=== PATIENT | female | born 1960 | race Caucasian/White ===

== ENCOUNTER 2017-06-29 05:58 | Emergency (ER) | payer BC, OTHER ==
[2017-06-29 06:06] VITALS: PULSE 60; RESP 16
--- NOTE | 2017-06-29 06:33 | ED ---
Lower Extremity Injury HPI - General Chief Complaint: Extremity Injury, Lower Stated Complaint: Ankle Injury Time Seen by Provider: 06/29/17 06:31 Source: patient Mode of arrival: wheelchair Limitations: no limitations - History of Present Illness Initial Comments: Patient's 56-year-old woman who was stepping out of her truck yesterday and then had forced plantar flexion of the right ankle. She states that initially there was a little bit of pain but it has worsened since that time. She has noted swelling at the lateral and posterior aspect of the right ankle. She also has some pain at the dorsum of the foot and towards the toes. When things were worsening instead of proving she decided she should be seen here. MD Complaint: ankle injury, foot injury Onset/Timin -: days(s) Injury: Ankle: Left, Foot: Left Type of Injury: hyperextension Place: street/outdoors Severity: moderate Improves With: rest Worsens With: weight bearing Associated Symptoms: swelling - Related Data Home Medications Medication Instructions Recorded Confirmed Ibuprofen [Motrin Ib] 400 mg PO Q6H PRN 06/29/17 06/29/17 Previous Rx's Medication Instructions Recorded Hydrocodone/Acetaminophen [[place] 1 each PO Q6HR PRN #15 tab 06/29/17 5-325] Ibuprofen [Motrin] 600 mg PO Q8HR PRN #20 tab 06/29/17 Allergies Allergy/AdvReac Type Severity Reaction Status Date / Time No Known Allergies Allergy Verified 06/29/17 07:10 Review of Systems ROS Statement: Those systems with pertinent positive or pertinent negative responses have been documented in the HPI. ROS Other: All systems not noted in ROS Statement are negative. Constitutional: Denies: fever Musculoskeletal: Reports: joint swelling, arthralgia Skin: Denies: rash Neurological: Denies: weakness, numbness Past Medical History Past Medical History: No Reported History History of Any Multi-Drug Resistant Organisms: None Reported Past Surgical History: Tonsillectomy Additional Past Surgical History / Comment(s): bladder sling. Past Psychological History: No Psychological Hx Reported Smoking Status: Current every day smoker Past Alcohol Use History: Occasional Past Drug Use History: Marijuana General Exam Limitations: no limitations General appearance: alert, in no apparent distress Right Knee exam: Present: normal inspection, full ROM. Absent: tenderness, swelling Lower Leg exam: Present: normal inspection, full ROM. Absent: tenderness, swelling Ankle exam: Present: tenderness (Lateral malleolus), swelling (Lateral malleolus ), ecchymosis. Absent: full ROM, abrasion, laceration, deformity, dislocation, erythema Foot/Toe exam: Present: tenderness, ecchymosis Neurovascular tendon exam: Present: no vascular compromise. Absent: abnormal cap refill, motor deficit, sensory deficit Skin exam: Present: warm, dry, intact, normal color. Absent: rash Course Vital Signs 06/29/17 06:03 Temperature 98.6 F Pulse Rate 60 Respiratory 16 Rate Blood Pressure 113/57 O2 Sat by Pulse 100 Oximetry Procedures - Orthopedic Splinting/Casting Injury #1 Side: right Lower Extremity Injury Location: ankle Lower Extremity Immobilizer: posterior splint Other Orthopedic Equipment: crutches Disposition Clinical Impression: Ankle fracture Disposition: HOME SELF-CARE Condition: Good Instructions: Ankle Fracture (ED) Prescriptions: Hydrocodone/Acetaminophen [[place] 5-325] 1 each PO Q6HR PRN #15 tab PRN Reason: Pain Ibuprofen [Motrin] 600 mg PO Q8HR PRN #20 tab PRN Reason: Pain Is patient prescribed a controlled substance at d/c from ED?: Yes Referrals: Alexus Colbert MD [Primary Care Provider] - 1-2 days Rahul Hernandez MD [STAFF PHYSICIAN] - 1-2 days
--- NOTE | 2017-06-29 06:44 | XR ---
EXAMINATION TYPE: XR foot complete RT DATE OF EXAM: 06/29/2017 COMPARISON: NONE HISTORY: Pain and swelling TECHNIQUE: 3 views FINDINGS: Metatarsals appear intact. There is a plantar calcaneal spur. I see no fracture nor disloca tion. There are no erosions. IMPRESSION: Calcaneal spurring. No fracture seen.
--- NOTE | 2017-06-29 06:46 | XR ---
EXAMINATION TYPE: XR ankle complete RT DATE OF EXAM: 06/29/2017 COMPARISON: NONE HISTORY: Pain and injury TECHNIQUE: 3 views FINDINGS: There is nondisplaced transverse fracture of the distal fibula. There is mild lateral soft tissue swelling. There is no dislocation. There is a plantar calcaneal spur. IMPRESSION: Nondisplaced fracture of the lateral malleolus.
[2017-06-29 07:36] VITALS: BP 106/53; TEMP 99.3
== END 2017-06-29 07:36 | disposition home or self-care (01) ==
LOC: EC 05:58
DX: S82.891A Other fracture of right lower leg, initial encounter for closed fracture (principal); S90.31XA Contusion of right foot, initial encounter; F17.200 Nicotine dependence, unspecified, uncomplicated; X50.1XXA Overexertion from prolonged static or awkward postures, initial encounter; Y93.89 Activity, other specified; Y92.410 Unspecified street and highway as the place of occurrence of the external cause
CPT/HCPCS: 29515; 99283

== ENCOUNTER → 2018-02-26 | Outpatient (CLI) | payer BC ==
[2018-02-26 10:04] VITALS: BP 96/62; PULSE 72; BMI 32.1
[2018-02-26 10:15] VITALS: TEMP 98.6
--- NOTE | 2018-02-26 10:41 | P.HPOB ---
History of Present Illness H&P Date: 02/26/18 Chief Complaint: The patient is here for her routine gynecologic exam and mammogram. This is a 57-year-old with an LMP of 2005. The patient is status post vaginal hysterectomy for benign reasons. The patient is without gynecologic complaints. Review of Systems The patient has gained 5 pounds over the last year. She denies respiratory, cardiac, or G.I. problems. 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 No other history of STDs. Vaginal hysterectomy with A+P repairs done for prolapse. History of Any Multi-Drug Resistant Organisms: None Reported Past Surgical History: Hysterectomy (Vaginal hysterectomy with a+P repairs 2005) , Tonsillectomy Additional Past Surgical History / Comment(s): bladder sling. D&C. Colonoscopy 2018(2nd, next 3yrs) Past Psychological History: Anxiety Smoking Status: Current every day smoker (Half a pack of cigarettes per day) Past Alcohol Use History: Daily (2 per day) Past Drug Use History: Marijuana Additional History: since 2017, but has been with her since 1992. 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 - Past Family History Mother Family Medical History: Diabetes Mellitus Additional Family Medical History / Comment(s): And had breast cancer. Grandparents had heart disease and diabetes. Medications and Allergies Home Medications Medication Instructions Recorded Confirmed Type Pravastatin Sodium [Pravachol] 40 mg PO DAILY 02/26/18 02/26/18 History Sertraline [Zoloft] 25 mg PO DAILY 02/26/18 02/26/18 History Allergies Allergy/AdvReac Type Severity Reaction Status Date / Time No Known Allergies Allergy Verified 02/26/18 10:04 Exam Vital Signs Temp Pulse BP 02/26/18 09:58 98.6 F 72 96/62 Intake and Output 02/25/18 02/26/18 02/26/18 22:59 06:59 14:59 Other: Weight 77.111 kg Height 5'1", weight 170 pounds, BMI 32.1. This is a well-developed well-nourished female who is alert and oriented times 3 in no acute distress. HEENT: Within normal limits. NECK: Supple without mass or thyromegaly. CHEST AND LUNGS: Clear to auscultation. HEART: Regular rate and rhythm. BREASTS: Are without mass or discharge. AXILLARY EXAM: Negative for adenopathy. BACK: Negative for CVA tenderness. ABDOMEN: Soft, nontender, without palpable masses. PELVIC EXAM: Normal external genitalia with mild to moderate atrophy. Vagina appears normal with mild to moderate atrophy.. There is no unusual discharge. There is no evidence of prolapse. There are no palpable adnexal masses or tenderness. RECTAL EXAM: rectovaginal exam is negative for mass or tenderness and is negative for occult blood. EXTREMITIES: Nontender. IMPRESSION: 1. 57-year-old menopausal female status post vaginal hysterectomy for benign reasons, with normal gynecologic exam. PLAN: 1. Pap smears have been discontinued. 2. Self breast awareness was discussed with the patient. 3. Screening mammogram will be done today. 4. Osteoporosis prevention was discussed. I have stressed the importance of adequate calcium, vitamin D and regular exercise. Recommended amounts of calcium and vitamin D were also discussed. 5. She is planning and quitting smoking. We've discussed reasons why this is important. She and her plan on quitting using the nicotine patch. 5. She will return in one year.
--- NOTE | 2018-03-02 10:23 | MM ---
Reason for exam: screening (asymptomatic). Last mammogram was performed 2 years and 3 months ago. History: Patient is postmenopausal. Family history of breast cancer in aunt. MG Screening Mammo w CAD Bilateral CC and MLO view(s) were taken. XCCL view(s) were taken of the right breast. Prior study comparison: December 08, 2015, bilateral MG screening mammo w CAD. August 05, 2013, mammogram, performed at [facility]. The breast tissue is heterogeneously dense. This may lower the sensitivity of mammography. No discrete abnormality. ASSESSMENT: Negative, BI-RAD 1 RECOMMENDATION: Routine screening mammogram of both breasts in 1 year.
== END ==
LOC: WWCWWP 09:19
PROVIDERS: ATTEND Obstetrics & Gynecology
DX: Z12.31 Encounter for screening mammogram for malignant neoplasm of breast (principal)
CPT/HCPCS: 77067

== ENCOUNTER → 2019-08-26 | Outpatient (CLI) | payer BC ==
[2019-08-26 09:27] VITALS: BP 96/63; PULSE 61; RESP 18; TEMP 98.1
--- NOTE | 2019-08-26 10:07 | P.HPOB ---
History of Present Illness H&P Date: 08/26/19 Chief Complaint: The patient is here for her routine gynecologic exam. This is a 59-year-old with an LMP of 2006. The patient is status post vaginal hysterectomy for benign reasons. The patient is without gynecologic complaints. Review of Systems The patient has gained 8 pounds over the last year. She denies respiratory, cardiac, or G.I. problems. 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 No other history of STDs. History of Any Multi-Drug Resistant Organisms: None Reported Past Surgical History: Hysterectomy, Tonsillectomy Additional Past Surgical History / Comment(s): bladder sling. D&C. Vaginal hysterectomy with A+P repairs done for prolapse. Colonoscopy 2018(2nd, next 3yrs) Past Psychological History: Anxiety Smoking Status: Current every day smoker (5 cigarettes per day) Past Alcohol Use History: Daily (1-2 per day) Past Drug Use History: Marijuana Additional History: The patient has been since 2017 but has been with her since 1992. 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 - Past Family History Mother Family Medical History: Diabetes Mellitus Additional Family Medical History / Comment(s): And had breast cancer. Grandparents had heart disease and diabetes. Medications and Allergies Home Medications Medication Instructions Recorded Confirmed Type Pravastatin Sodium [Pravachol] 40 mg PO DAILY 02/26/18 08/26/19 History Sertraline [Zoloft] 25 mg PO DAILY 02/26/18 08/26/19 History Allergies Allergy/AdvReac Type Severity Reaction Status Date / Time No Known Allergies Allergy Verified 08/26/19 09:21 Exam Vital Signs Temp Pulse Resp BP Pulse Ox 08/26/19 09:24 98.1 F 61 18 96/63 99 Intake and Output 08/25/19 08/26/19 08/26/19 22:59 06:59 14:59 Other: Weight 80.739 kg Height 5 feet 1-1/2 inches, weight 178 pounds, BMI 30.1. This is a well-developed well-nourished female who is alert and oriented times 3 in no acute distress. HEENT: Within normal limits. NECK: Supple without mass or thyromegaly. CHEST AND LUNGS: Clear to auscultation. HEART: Regular rate and rhythm. BREASTS: Are without mass or discharge. AXILLARY EXAM: Negative for adenopathy. BACK: Negative for CVA tenderness. ABDOMEN: Soft, nontender, without palpable masses. PELVIC EXAM: External genitalia appears normal with mild atrophy. Vagina appears normal. There is no evidence of prolapse. Bimanual examination is negative for mass or tenderness. RECTAL EXAM: Rectovaginal exam is negative for mass or tenderness and is negative for occult blood. EXTREMITIES: Nontender. IMPRESSION: 1. 59-year-old menopausal female status post vaginal hysterectomy for benign reasons with normal gynecologic exam. PLAN: 1. Pap smears have been discontinued. 2. Self breast awareness was discussed with the patient. 3. Screening mammogram is scheduled next month and the order slip was given to the patient for this. 4. Osteoporosis prevention was discussed. I have stressed the importance of adequate calcium, vitamin D and regular exercise. Recommended amounts of calcium and vitamin D were also discussed. I have recommended that she do a baseline bone density test at her next annual examination appointment. 5. She is trying to cut back on smoking cigarettes. Stressed the importance of still working to cut back and possibly quit. We discussed many reasons why this is important. She states she will smoke no more than 5 cigarettes per day any day. She will try to decrease this number hopefully down to 0. 6. She was advised to return in one year for her annual well woman exam.
== END | disposition home or self-care (01) ==
LOC: WWCWWP 09:14
PROVIDERS: ATTEND Obstetrics & Gynecology
DX: Z53.9 Procedure and treatment not carried out, unspecified reason (principal)

== ENCOUNTER → 2019-08-29 | Outpatient (CLI) | payer BC ==
--- NOTE | 2019-08-29 08:32 | CT ---
EXAMINATION TYPE: CT chest wo con DATE OF EXAM: 08/29/2019 COMPARISON: None HISTORY: follow up abnormal chest xray CT DLP: 425.[address] of the chest was performed with lung and mediastinal window settings submitted. The la ck of contrast limits evaluation of the vascular, mediastinal and parenchymal structures including th e upper abdomen. LUNGS: Mild linear scarring left lower lobe. The lungs are clear and free of infiltrate. No atelectas is. No pulmonary nodule or mass is detected. No pleural effusion. No CT evidence of interstitial l devaughn disease. MEDIASTINUM/DIEUDONNE: Thoracic aorta is of normal caliber with limited evaluation given lack of contrast . The heart is not enlarged. No evidence for mediastinal mass. No lymph nodes greater than 1cm. UPPER ABDOMEN: No significant abnormality is seen. OTHER: No significant other abnormality. IMPRESSION: 1. No significant abnormality identified on this unenhanced study.
== END | disposition home or self-care (01) ==
LOC: RADCTMAIN 08:04
PROVIDERS: ATTEND Family Medicine
DX: R93.89 Abnormal findings on diagnostic imaging of other specified body structures (principal); Z72.0 Tobacco use
CPT/HCPCS: 71250

== ENCOUNTER → 2019-10-09 | Outpatient (CLI) | payer BC ==
--- NOTE | 2019-10-13 08:03 | MM ---
Reason for exam: screening (asymptomatic). Last mammogram was performed 1 year and 7 months ago. History: Patient is postmenopausal. Family history of breast cancer in aunt. Physical Findings: A clinical breast exam by your physician is recommended on an annual basis and results should be correlated with mammographic findings. MG Screening Mammo w CAD Bilateral CC and MLO view(s) were taken. Prior study comparison: February 26, 2018, bilateral MG screening mammo w CAD. December 08, 2015, bilateral MG screening mammo w CAD. There are scattered fibroglandular densities. No significant changes when compared with prior studies. ASSESSMENT: Negative, BI-RAD 1 RECOMMENDATION: Routine screening mammogram of both breasts in 1 year.
== END | disposition home or self-care (01) ==
LOC: RADMAMWWP 07:33
PROVIDERS: ATTEND Obstetrics & Gynecology
DX: Z12.31 Encounter for screening mammogram for malignant neoplasm of breast (principal)
CPT/HCPCS: 77067

== ENCOUNTER → 2020-10-20 | Outpatient (CLI) | payer BC ==
[2020-10-20 10:58] VITALS: BP 90/64; PULSE 62; RESP 18; TEMP 98.3
--- NOTE | 2020-10-20 11:44 | P.HPOB ---
History of Present Illness H&P Date: 10/20/20 Chief Complaint: The patient is here for her routine gynecologic exam and ma mmogram. This is a 60-year-old 012 with an LMP of 2006. The patient is status post vaginal hysterectomy for benign reasons. The patient still has occasional mild hot flashes which are not very bothersome. She is otherwise without gynecologic complaints. Review of Systems The patient has gained 6 pounds over the last year. She denies respiratory, cardiac, or G.I. problems. 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 No other history of STDs. History of Any Multi-Drug Resistant Organisms: None Reported Past Surgical History: Hysterectomy, Tonsillectomy Additional Past Surgical History / Comment(s): bladder sling. D&C. Vaginal hysterectomy with A+P repairs done for prolapse. Colonoscopy 2018(2nd, next 3yrs) Past Psychological History: Anxiety Smoking Status: Current every day smoker (4-10 cigarettes per day. She is trying to quit.) Past Alcohol Use History: Daily (3-4 drinks per day but she is trying to decrease her alcohol consumption.) Past Drug Use History: Marijuana (Small amount daily. She is trying to cut back.) Additional History: She is been since 2018, but they have been together since 1992. - Past Family History Mother Family Medical History: Diabetes Mellitus Additional Family Medical History / Comment(s): Maternal aunt had breast cancer. Grandparents had heart disease and diabetes. Medications and Allergies Home Medications Medication Instructions Recorded Confirmed Type Pravastatin Sodium [Pravachol] 40 mg PO DAILY 02/26/18 10/20/20 History Sertraline [Zoloft] 25 mg PO DAILY 02/26/18 10/20/20 History Allergies Allergy/AdvReac Type Severity Reaction Status Date / Time No Known Allergies Allergy Verified 10/20/20 10:50 Exam Vital Signs Temp Pulse Resp BP Pulse Ox 10/20/20 10:51 98.3 F 62 18 90/64 99 Intake and Output 10/19/20 10/20/20 10/20/20 22:59 06:59 14:59 Other: Weight 83.461 kg Height 5 feet 1-1/2 inches, weight 184 pounds, BMI 34.2. This is a well-developed well-nourished female who is alert and oriented times 3 in no acute distress. HEENT: Within normal limits. NECK: Supple without mass or thyromegaly. CHEST AND LUNGS: Clear to auscultation. HEART: Regular rate and rhythm. BREASTS: Are without mass or discharge. AXILLARY EXAM: Negative for adenopathy. BACK: Negative for CVA tenderness. ABDOMEN: Soft, nontender, without palpable masses. PELVIC EXAM: External genitalia appears normal with mild atrophy. Vagina appears normal with mild atrophy. There is no evidence of prolapse. Bimanual examination is negative for mass or tenderness. RECTAL EXAM: Rectovaginal exam is negative for mass or tenderness and is negative for occult blood. EXTREMITIES: Nontender. IMPRESSION: 1. 60-year-old menopausal female who is status post vaginal hysterectomy for benign reasons with normal gynecologic exam. PLAN: 1. Pap smears have been discontinued. 2. Self breast awareness was discussed with the patient. We have also discussed symptoms associated with inflammatory breast cancer. 3. Screening mammogram was done today. 4. Osteoporosis prevention was discussed. I have stressed the importance of adequate calcium, vitamin D and regular exercise. Recommended amounts of calcium and vitamin D were also discussed. We will plan on doing a bone density test next year at age 61. 5. She is trying to cut back on smoking cigarettes, drinking alcohol and marijuana use. We have discussed many reasons why each of these things is important to decrease. 6. She did receive her Stevie and Stevie Covid vaccination. 7. She believes she is due for colonoscopy and will arrange this through her PCP. 8. She was advised to return in one year for her annual well woman exam.
== END ==
LOC: WWCWWP 10:19
PROVIDERS: ATTEND Obstetrics & Gynecology
DX: Z12.31 Encounter for screening mammogram for malignant neoplasm of breast (principal); Z01.419 Encounter for gynecological examination (general) (routine) without abnormal findings; E78.5 Hyperlipidemia, unspecified; F17.210 Nicotine dependence, cigarettes, uncomplicated; F41.9 Anxiety disorder, unspecified; Z80.3 Family history of malignant neoplasm of breast; Z90.710 Acquired absence of both cervix and uterus

== ENCOUNTER → 2020-10-20 | Outpatient (CLI) | payer BC ==
--- NOTE | 2020-10-21 12:30 | MM ---
Reason for exam: screening (asymptomatic). Last mammogram was performed 1 year ago. History: Patient is postmenopausal. Family history of breast cancer in aunt. Physical Findings: A clinical breast exam by your physician is recommended on an annual basis and results should be correlated with mammographic findings. MG Screening Mammo w CAD Bilateral CC and MLO view(s) were taken. XCCL view(s) were taken of the right breast. Prior study comparison: October 09, 2019, bilateral MG screening mammo w CAD. February 26, 2018, bilateral MG screening mammo w CAD. There are scattered fibroglandular densities. There is no discrete abnormality. ASSESSMENT: Negative, BI-RAD 1 RECOMMENDATION: Routine screening mammogram of both breasts in 1 year.
== END | disposition home or self-care (01) ==
LOC: RADMAMWWP 10:14
PROVIDERS: ATTEND Family Medicine
DX: Z12.31 Encounter for screening mammogram for malignant neoplasm of breast (principal); Z78.0 Asymptomatic menopausal state; Z80.3 Family history of malignant neoplasm of breast
CPT/HCPCS: 77067

== ENCOUNTER → 2020-11-29 | Outpatient (CLI) | payer BC ==
--- NOTE | 2020-11-29 10:49 | XR ---
EXAMINATION TYPE: XR lumbosacral spine min 4V DATE OF EXAM: 11/29/2020 CLINICAL HISTORY: pain COMPARISON: NONE TECHNIQUE: Frontal, lateral, and oblique images of the lumbar spine are obtained. FINDINGS: There are 5 lumbar type vertebral bodies identified. The lumbar spine shows satisfactory alignment without evidence of acute fracture or dislocation. Severe degenerative change L4-5 and L5-S 1. Grade 1 L4 and L5 measuring 7.4 mm. The overlying soft tissue appears unremarkable. IMPRESSION: No acute fracture or dislocation is seen in the lumbar spine.ICD 10 NO FRACTURE, INITIAL EVALUATION
== END | disposition home or self-care (01) ==
LOC: RADXRMAIN 10:22
PROVIDERS: ATTEND Family Medicine
DX: M54.50 Low back pain, unspecified (principal)
CPT/HCPCS: 72110

== ENCOUNTER 2021-05-24 07:59 | Day surgery (SDC) | payer BC ==
[2021-05-19 11:26] VITALS: BMI 33.4
[~2021-05-24 07:59] MED LIST: LACTATED RINGERS 1,000 ML IV SCH
[2021-05-24 08:28] VITALS: TEMP 97.1
[2021-05-24] MEDS ORDERED: LIDOCAINE 1% INJ 10MG/ML (20 ML MDV) ONE (08:54)
[2021-05-24] MEDS ORDERED: PROPOFOL 10 MG/ML 20 ML VIAL IV ONE (08:54)
--- NOTE | 2021-05-24 09:02 | P.GSHP ---
History of Present Illness H&P Date: 05/24/21 Chief Complaint: History of colon polyps 60-year-old female here today for colonoscopy her last colonoscopy 2018. She had an ascending colon polyp that was removed in a piecemeal fashion. She has had occasional episodes of rectal bleeding. Otherwise doing well. 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 No other history of STDs. History of Any Multi-Drug Resistant Organisms: None Reported Past Surgical History: Hysterectomy, Tonsillectomy Additional Past Surgical History / Comment(s): D&C. Vaginal hysterectomy with A+P repairs done for prolapse. Colonoscopy 2018 Past Anesthesia/Blood Transfusion Reactions: No Reported Reaction Smoking Status: Current every day smoker - Past Family History Mother Family Medical History: Diabetes Mellitus Additional Family Medical History / Comment(s): Maternal aunt had breast cancer. Grandparents had heart disease and diabetes. Medications and Allergies Home Medications Medication Instructions Recorded Confirmed Type Pravastatin Sodium [Pravachol] 40 mg PO HS 02/26/18 05/24/21 History Sertraline [Zoloft] 12.5 mg PO DAILY 02/26/18 05/24/21 History Cyclobenzaprine HCl 10 mg PO HS PRN 05/24/21 05/24/21 History Allergies Allergy/AdvReac Type Severity Reaction Status Date / Time No Known Allergies Allergy Verified 05/24/21 08:23 Surgical - Exam Vital Signs Temp Pulse Resp BP Pulse Ox 97.1 F L 60 16 108/73 100 05/24/21 08:18 05/24/21 08:18 05/24/21 08:18 05/24/21 08:18 05/24/21 08:18 Physical exam: General: Well-developed, well-nourished HEENT: Normocephalic, sclerae nonicteric Abdomen: Nontender, nondistended Extremities: No edema Neuro: Alert and oriented Assessment and Plan (1) Colon polyps Narrative/Plan: Will proceed with colonoscopy at this time. Current Visit: Yes Status: Acute Code(s): K63.5 - POLYP OF COLON SNOMED Code(s): 28521636
--- NOTE | 2021-05-24 09:22 | P.PCN ---
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 SPECIMENS: Ileocecal valve, ascending colon polyp ENDOSCOPIC PROCEDURE: The patient was placed on the endoscopy table in the left decubitus position. The Olympus colonoscope was inserted into the anus and passed under direct visualization to the base of the cecum. The appendiceal orifice was visualized. From that point the scope was slowly withdrawn inspecting all surfaces carefully. At the valve itself there was a pedunculated portion of mucosa that was noted to intermittently carlos from the valve itself. A biopsy was taken to rule out adenomatous tissue however this was suspected represent a submucosal lipoma. And transverse colon. In the descending colon a small polyp was seen and removed using the snare polypectomy technique. The remainder of the descending sigmoid and rectum was free of any neoplastic or polypoid lesions. There was mild inflammation in the sigmoid colon associated with the patient's diverticulosis which appeared similar to previous endoscopies. The rectum appeared normal. Digital rectal examination was normal. The patient was taken to the recovery room in stable condition per anesthesia guidelines. RECOMMENDATIONS: Await biopsy results. Recommend repeat colonoscopy 5 years.
[2021-05-24 09:43] VITALS: BP 111/69; PULSE 55; RESP 20
== END 2021-05-24 10:10 ==
LOC: ORWHC2ENDO 07:59
PROVIDERS: ATTEND Surgery
DX: K57.30 Diverticulosis of large intestine without perforation or abscess without bleeding (principal); D12.4 Benign neoplasm of descending colon; E78.5 Hyperlipidemia, unspecified; F17.200 Nicotine dependence, unspecified, uncomplicated; F32.A Depression, unspecified; Z86.010 Personal history of colon polyps; Z79.899 Other long term (current) drug therapy; Z83.3 Family history of diabetes mellitus
CPT/HCPCS: 45380; 45385; 88305; J2001; J2704

== ENCOUNTER → 2021-10-21 | Outpatient (CLI) | payer BC ==
--- NOTE | 2021-10-28 17:57 | MM ---
Reason for Exam: Screening (asymptomatic). Last screening mammogram was performed 12 month(s) ago. Patient History: Menarche at age 11. First Full-Term at age 22. Hysterectomy at age 44. Postmenopausal. Maternal aunt had breast cancer, age 60. Risk Values: Anali 5 year model risk: 1.4%. NCI Lifetime model risk: 7.2%. Prior Study Comparison: 02/26/2018 Bilateral Screening Mammogram, [facility]. 10/09/2019 Bilateral Screening Mammogram, [facility]. 10/20/2020 Bilateral Screening Mammogram, [facility]. Tissue Density: The breast tissue is almost entirely fat. Findings: Analyzed By CAD. There is no suspicious group of microcalcifications or new suspicious mass in either breast. Overall Assessment: Negative, BI-RAD 1 Management: Screening Mammogram of both breasts in 1 year. A clinical breast exam by your physician is recommended on an annual basis and results should be correlated with mammographic findings. Electronically signed and approved by: Jarret Mg DO
== END | disposition home or self-care (01) ==
LOC: RADMAMWWP 10:19
PROVIDERS: ATTEND Family Medicine
DX: Z12.31 Encounter for screening mammogram for malignant neoplasm of breast (principal); Z78.0 Asymptomatic menopausal state; Z80.3 Family history of malignant neoplasm of breast
CPT/HCPCS: 77067

== ENCOUNTER → 2021-12-13 | Outpatient (CLI) | payer BC ==
[2021-12-13 10:07] VITALS: BP 102/70; PULSE 66; RESP 17; TEMP 98.1
--- NOTE | 2021-12-13 10:43 | P.HPOB ---
History of Present Illness H&P Date: 12/13/21 Chief Complaint: The patient is here for her routine gynecologic exam. This is a 69-year-old 012 with an LMP of 2005. She is status post vaginal hysterectomy for benign reasons. She is without gynecologic complaints. Review of Systems The patient's weight has been stable over the last year. She denies respiratory, cardiac, or G.I. problems. 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 No other history of STDs. History of Any Multi-Drug Resistant Organisms: None Reported Past Surgical History: Hysterectomy, Tonsillectomy Additional Past Surgical History / Comment(s): bladder sling. D&C. Vaginal hysterectomy with A+P repairs done for prolapse. Colonoscopy 2021(3rd, next 5yrs) Past Psychological History: Anxiety Smoking Status: Current every day smoker (Half pack per day) Past Alcohol Use History: Occasional (6 per week) Past Drug Use History: Marijuana (Small amount most days.) Additional History: She has been a since 2021. She now lives with one of her children and grandchildren. - Past Family History Mother Family Medical History: Diabetes Mellitus Additional Family Medical History / Comment(s): Maternal aunt had breast cancer. Grandparents had heart disease and diabetes. Medications and Allergies Home Medications Medication Instructions Recorded Confirmed Type Pravastatin Sodium [Pravachol] 40 mg PO HS 02/26/18 12/13/21 History Sertraline [Zoloft] 12.5 mg PO DAILY 02/26/18 12/13/21 History Cyclobenzaprine HCl 10 mg PO HS PRN 05/24/21 12/13/21 History Calcium Carbonate [Calcium] 600 mg PO DAILY 12/13/21 12/13/21 History Cholecalciferol [Vitamin D3 (10 10 mcg PO DAILY 12/13/21 12/13/21 History Mcg = 400 Iu)] Allergies Allergy/AdvReac Type Severity Reaction Status Date / Time No Known Allergies Allergy Verified 12/13/21 09:55 Exam Vital Signs Temp Pulse Resp BP Pulse Ox 12/13/21 10:05 98.1 F 66 17 102/70 97 Intake and Output 12/12/21 12/13/21 12/13/21 22:59 06:59 14:59 Other: Weight 83.915 kg Height 5 feet 2 inches, weight 185 pounds, BMI 33.8. This is a well-developed well-nourished female who is alert and oriented times 3 in no acute distress. HEENT: Within normal limits. NECK: Supple without mass or thyromegaly. CHEST AND LUNGS: Clear to auscultation. HEART: Regular rate and rhythm. BREASTS: Are without mass or discharge. AXILLARY EXAM: Negative for adenopathy. BACK: Negative for CVA tenderness. ABDOMEN: Soft, nontender, without palpable masses. PELVIC EXAM: External genitalia appears normal with mild atrophy. Vagina appears normal with mild atrophy. There is no evidence of prolapse. Bimanual examination is negative for mass or tenderness. RECTAL EXAM: Rectovaginal exam is negative for mass or tenderness and is negative for occult blood. EXTREMITIES: Nontender. IMPRESSION: 1. 61-year-old menopausal female status post vaginal hysterectomy for benign reasons, with normal gynecologic exam. PLAN: 1. Pap smears have been discontinued. 2. Self breast awareness was discussed with the patient. We have also discussed symptoms associated with inflammatory breast cancer. 3. Screening mammogram was done on 10/21/2021 and was benign. She will repeat this after 1 year. 4. Osteoporosis prevention was discussed. I have stressed the importance of adequate calcium, vitamin D and regular exercise. Recommended amounts of calcium and vitamin D were also discussed. Bone density testing is scheduled for 10/21/2021. 5. She was advised to return in one year for her annual well woman exam.
== END ==
LOC: WWCWWP 09:50
PROVIDERS: ATTEND Obstetrics & Gynecology
DX: Z01.419 Encounter for gynecological examination (general) (routine) without abnormal findings (principal); Z90.710 Acquired absence of both cervix and uterus; F17.200 Nicotine dependence, unspecified, uncomplicated

== ENCOUNTER → 2021-12-16 | Outpatient (CLI) | payer BC ==
--- NOTE | 2021-12-16 09:51 | BD ---
EXAMINATION TYPE: Axial Bone Density DATE OF EXAM: 12/16/2021 COMPARISON: FIRST DEXA AT [facility] CLINICAL HISTORY: 61 years year old Female. ICD-10 CODE: Z78.0 ASYMPTOMATIC MENOPAUSAL STATE Height: 61IN Weight: 184LB FRAX RISK QUESTIONS: Alcohol (3 or more units per day): YES History of Fracture in Adulthood: YES Secondary Osteoporosis: YES 3. Menopause before 45: YES Current Tobacco Use: YES RISK FACTORS HISTORY OF: Family History of Osteoporosis: YES Active: YES Postmenopausal woman: YES MEDICATIONS: Additional Medications: CALCIUM WITH VITAMIN D, CHOLESTEROL MED Additional History: ANKLE FX EXAM MEASUREMENTS: Bone mineral densitometry was performed using the [employer] System. Bone mineral density as measured about the Lumbar spine is: ----- L1-L4(G/cm2): 1.107 T Score Values are as follows: ----- L1: -1.1 ----- L2: -1.2 ----- L3: -0.1 ----- L4: -0.4 ----- L1-L4: -0.6 FIRST DEXA AT [facility] Bone mineral density about the R hip (g/cm2): 0.797 Bone mineral density about the L hip (g/cm2): 0.881 T Score values are as follows: -----R Neck: -2.2 -----L Neck: -2.2 -----R Total: -1.7 -----L Total: -1.0 FRAX%s: The graph provided illustrates a 12.4% chance for a major osteoporotic fx and a 3.8% chance f or the hips probability for fx in 10 years time. IMPRESSION: Osteopenia (T Score between -2.5 and -1). There is slightly increased risk of fracture and the patient may be considered for treatment. Re-Screen 2-5 years. NOTE: T-SCORE=SD OF THE YOUNG ADULT MEAN.
== END | disposition home or self-care (01) ==
LOC: RADBDWWP 08:34
PROVIDERS: ATTEND Family Medicine
DX: M85.89 Other specified disorders of bone density and structure, multiple sites (principal); Z78.0 Asymptomatic menopausal state
CPT/HCPCS: 77080

== ENCOUNTER → 2022-11-22 | Outpatient (CLI) | payer BC ==
--- NOTE | 2022-11-23 10:55 | MM ---
Reason for Exam: Screening (asymptomatic). Last mammogram was performed 1 year(s) and 1 month(s) ago. Patient History: Menarche at age 11. First Full-Term at age 22. Hysterectomy at age 44. Postmenopausal. Maternal aunt had breast cancer, age 60. Risk Values: Anali 5 year model risk: 1.5%. NCI Lifetime model risk: 7.0%. Prior Study Comparison: 10/09/2019 Bilateral Screening Mammogram, [facility]. 10/20/2020 Bilateral Screening Mammogram, [facility]. 10/21/2021 Bilateral MG screening mammo w CAD, [facility]. Tissue Density: There are scattered fibroglandular densities. Findings: Analyzed By CAD. There is no suspicious group of microcalcifications or new suspicious mass in either breast. Overall Assessment: Negative, BI-RAD 1 Management: Screening Mammogram of both breasts in 1 year. . Patient should continue monthly self-breast exams. A clinical breast exam by your physician is recommended on an annual basis. This exam should not preclude additional follow-up of suspicious palpable abnormalities. Note on Anali scores and lifetime risk: 1. A Anali score greater than 3% is considered moderate risk. If this is the case, consider specialist referral to assess eligibility for a risk reducing agent. 2. If overall lifetime risk for the development of breast cancer is 20% or higher, the patient may qualify for future screening with alternating mammogram and breast MRI. Electronically signed and approved by: Zeeshan Haji M.D. Radiologis
== END | disposition home or self-care (01) ==
LOC: RADMAMWWP 07:44
PROVIDERS: ATTEND Family Medicine
DX: Z12.31 Encounter for screening mammogram for malignant neoplasm of breast (principal); Z78.0 Asymptomatic menopausal state; Z80.3 Family history of malignant neoplasm of breast
CPT/HCPCS: 77063; 77067

== ENCOUNTER → 2023-12-25 | Outpatient (CLI) | payer BC ==
[2023-12-25 10:04] VITALS: BP 101/67; PULSE 58; RESP 17; TEMP 97.7
--- NOTE | 2023-12-25 10:35 | P.HPOB ---
History of Present Illness H&P Date: 12/25/23 Chief Complaint: The patient is here for her routine gynecologic exam and ma mmogram. This is a 63-year-old -0-1-2 with an LMP of 2005. The patient is status post vaginal hysterectomy for benign reasons. She is without gynecologic complaints. Review of Systems The patient has lost 6 pounds over the last year. She denies respiratory, cardiac, or G.I. problems. Past Medical History Past Medical History: Hyperlipidemia Additional Past Medical History / Comment(s): Osteopenia. 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 No other history of STDs. History of Any Multi-Drug Resistant Organisms: None Reported Past Surgical History: Hysterectomy, Tonsillectomy Additional Past Surgical History / Comment(s): bladder sling. D&C. Vaginal hysterectomy with A+P repairs done for prolapse. Colonoscopy 2021(3rd, next 5yrs) Past Psychological History: Anxiety Smoking Status: Current every day smoker (1/2 to 1 pack of cigarettes per day.) Past Alcohol Use History: Occasional Past Drug Use History: Marijuana Additional History: She has been a since 2021. She lives with one of her children and grandchildren. She also is caring for an aunt. - Past Family History Mother Family Medical History: Diabetes Mellitus Additional Family Medical History / Comment(s): Maternal aunt had breast cancer. Grandparents had heart disease and diabetes. Medications and Allergies Home Medications Medication Instructions Recorded Confirmed Type No Known Home Medications 12/25/23 12/25/23 History Allergies Allergy/AdvReac Type Severity Reaction Status Date / Time No Known Allergies Allergy Verified 12/25/23 09:52 Exam Vital Signs Temp Pulse Resp BP Pulse Ox 12/25/23 09:53 97.7 F 58 L 17 101/67 100 Intake and Output 12/24/23 12/25/23 12/25/23 22:59 06:59 14:59 Other: Weight 81.193 kg Height 5 feet 2 inches, weight 179 pounds, BMI 32.7. This is a well-developed well-nourished female who is alert and oriented times 3 in no acute distress. HEENT: Within normal limits. NECK: Supple without mass or thyromegaly. CHEST AND LUNGS: Clear to auscultation. HEART: Regular rate and rhythm. BREASTS: Are without mass or discharge. AXILLARY EXAM: Negative for adenopathy. BACK: Negative for CVA tenderness. ABDOMEN: Soft, nontender, without palpable masses. PELVIC EXAM: External genitalia appears normal with mild atrophy. Vagina appears normal with mild atrophy. There is no evidence of prolapse. Bimanual examination is negative for mass or tenderness. RECTAL EXAM: Rectovaginal exam is negative for mass or tenderness and is negative for occult blood. EXTREMITIES: Nontender. IMPRESSION: 1. 63-year-old menopausal female status post vaginal hysterectomy for benign reasons, with normal gynecologic exam. 2. History of osteopenia. PLAN: 1. Pap smears have been discontinued. 2. Self breast awareness was discussed with the patient. We have also discussed symptoms associated with inflammatory breast cancer. 3. Screening mammogram was done today. 4. Osteoporosis prevention was discussed. I have stressed the importance of adequate calcium, vitamin D and regular exercise. Recommended amounts of calcium and vitamin D were also discussed. I recommended that she repeat her bone density test since it has been more than 2 years. The order slip was given to the patient for this. 5. I have recommended trying to quit smoking. We have discussed ways of doing this. We have also discussed many reasons why this is important. 6. She was advised to return in one year for her annual well woman exam.
--- NOTE | 2023-12-29 17:18 | MM ---
Reason for Exam: Screening (asymptomatic). Last mammogram was performed 1 year(s) and 1 month(s) ago. Patient History: Menarche at age 11. First Full-Term at age 22. Hysterectomy at age 44. Postmenopausal. Maternal aunt had breast cancer, age 60. Risk Values: Anali 5 year model risk: 1.5%. NCI Lifetime model risk: 6.8%. Prior Study Comparison: 10/20/2020 Bilateral Screening Mammogram, [facility]. 10/21/2021 Bilateral MG screening mammo w CAD, [facility]. 11/22/2022 Bilateral MG 3D screening mammo w/cad, [facility]. Tissue Density: There are scattered areas of fibroglandular density. Findings: Analyzed By CAD. The pattern is symmetrical. No significant interval change No suspicious groups of microcalcifications, spiculated or lobular masses, architectural distortion or other secondary signs of malignancy are mammographically apparent. Overall Assessment: Benign, BI-RAD 2 Management: Screening Mammogram of both breasts in 1 year. A negative mammogram report should not preclude additional follow up of suspicious palpable abnormalities. Patient should continue monthly self breast exam. A clinical breast exam by your physician is recommended on an annual basis and results should be correlated with mammographic findings. Note on Anali scores and lifetime risk: 1. A Anali score greater than 3% is considered moderate risk. If this is the case, consider specialist referral to assess eligibility for a risk reducing agent. 2. If overall lifetime risk for the development of breast cancer is 20% or higher, the patient may qualify for future screening with alternating mammogram and breast MRI. [facility], , 12/29/2023 5:15 PM. Electronically signed and approved by: Michael Lane D.O. Radiologis
== END | disposition home or self-care (01) ==
LOC: RADMAMWWP 09:06
PROVIDERS: ATTEND Obstetrics & Gynecology
DX: Z12.31 Encounter for screening mammogram for malignant neoplasm of breast (principal); Z01.419 Encounter for gynecological examination (general) (routine) without abnormal findings; R92.323 Mammographic fibroglandular density, bilateral breasts; Z78.0 Asymptomatic menopausal state; Z80.3 Family history of malignant neoplasm of breast
CPT/HCPCS: 77063; 77067

== ENCOUNTER 2024-06-25 16:37 | Emergency (ER) | payer BC ==
--- NOTE | 2024-06-25 17:50 | ED ---
General Adult HPI - General Source: patient, RN notes reviewed Mode of arrival: ambulatory Limitations: no limitations <Dorothy Narvaez - Last Filed: 06/25/24 19:47> <Nichole Davis - Last Filed: 06/26/24 00:06> - General Chief complaint: Abdominal Pain Stated complaint: abd pain Time Seen by Provider: 06/25/24 17:31 - History of Present Illness Initial comments: 63-year-old female presents to the emergency department for evaluation of lower abdominal pain. Patient states that this has been going on for around 3 days. She notes that it was initially coming and going but has become more consistent. She notes it is in her lower abdomen and describes it as an aching pain. She does report a history of diverticulosis with a prior hospitalization for diverticulitis. Denies fever, chills, nausea, vomiting. She reports constipation and small bowel movements recently. She has been passing flatulence. She reports a prior hysterectomy, bladder sling surgery. (Dorothy Narvaez) - Related Data Home Medications Medication Instructions Recorded Confirmed No Known Home Medications 12/25/23 12/25/23 Allergies Allergy/AdvReac Type Severity Reaction Status Date / Time No Known Allergies Allergy Verified 06/25/24 16:45 Review of Systems ROS Other: All systems not noted in ROS Statement are negative. <Dorothy Narvaez - Last Filed: 06/25/24 19:47> ROS Other: All systems not noted in ROS Statement are negative. <Nichole Davis - Last Filed: 06/26/24 00:06> ROS Statement: Those systems with pertinent positive or pertinent negative responses have been documented in the HPI. Past Medical History Past Medical History: Hyperlipidemia Additional Past Medical History / Comment(s): Osteopenia. 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 No other history of STDs. Diverticulitis History of Any Multi-Drug Resistant Organisms: None Reported Past Surgical History: Hysterectomy, Tonsillectomy Additional Past Surgical History / Comment(s): bladder sling. D&C. Vaginal hysterectomy with A+P repairs done for prolapse. Colonoscopy 2021(3rd, next 5yrs) Past Psychological History: Anxiety Smoking Status: Current every day smoker Past Alcohol Use History: Occasional Past Drug Use History: Marijuana - Past Family History Mother Family Medical History: Diabetes Mellitus Additional Family Medical History / Comment(s): Maternal aunt had breast cancer. Grandparents had heart disease and diabetes. <Dorothy Narvaez - Last Filed: 06/25/24 19:47> General Exam Limitations: no limitations General appearance: alert, in no apparent distress Head exam: Present: atraumatic, normocephalic, normal inspection Eye exam: Present: normal appearance, PERRL, EOMI. Absent: scleral icterus, conjunctival injection, periorbital swelling ENT exam: Present: normal exam, mucous membranes moist Respiratory exam: Present: normal lung sounds bilaterally. Absent: respiratory distress, wheezes, rales, rhonchi, stridor Cardiovascular Exam: Present: regular rate, normal rhythm, normal heart sounds. Absent: systolic murmur, diastolic murmur, rubs, gallop, clicks GI/Abdominal exam: Present: soft, tenderness, normal bowel sounds. Absent: distended, guarding, rebound, rigid Extremities exam: Present: normal inspection, full ROM, normal capillary refill. Absent: tenderness, pedal edema, joint swelling, calf tenderness Back exam: Present: normal inspection Neurological exam: Present: alert, oriented X3 Psychiatric exam: Present: normal affect, normal mood Skin exam: Present: warm, dry, intact, normal color. Absent: rash <Dorothy Narvaez - Last Filed: 06/25/24 19:47> Course <Nichole Davis - Last Filed: 06/26/24 00:06> Vital Signs 06/25/24 06/25/24 16:41 20:52 Temperature 98.7 F 98.4 F Pulse Rate 75 62 Respiratory 22 18 Rate Blood Pressure 119/75 116/73 O2 Sat by Pulse 97 99 Oximetry - Reevaluation(s) Reevaluation #1: 06/25/24 19:48 Patient signed out to me by previous shift Dorothy Narvaez PA-C pending CT results and disposition. (Nichole Davis) Medical Decision Making - Lab Data Result diagrams: 06/25/24 18:05 06/25/24 18:05 <Dorothy Narvaez - Last Filed: 06/25/24 19:47> - Lab Data Result diagrams: 06/25/24 18:05 06/25/24 18:05 - Radiology Data Radiology results: report reviewed, image reviewed <Nichole Davis - Last Filed: 06/26/24 00:06> - Medical Decision Making Was pt. sent in by a medical professional or institution (ROMELIA Duron, STREET SUPERVISOR, urgent care, hospital, or chcf...) When possible be specific @ -[No] Did you speak to anyone other than the patient for history (EMS, parent, family, police, friend...)? What history was obtained from this source @ -[No] Did you review nursing and triage notes (agree or disagree)? Why? @ -[I reviewed and agree with nursing and triage notes] Were old charts reviewed (outside hosp., previous admission, EMS record, old EKG, old radiological studies, urgent care reports/EKG's, chcf records)? Report findings @ -[No old charts were reviewed] Differential Diagnosis (chest pain, altered mental status, abdominal pain women, abdominal pain men, vaginal bleeding, weakness, fever, dyspnea, syncope, headache, dizziness, GI bleed, back pain, seizure, CVA, palpatations, mental health, musculoskeletal)? @ -[Differential Abdominal Pain Women: Appendicitis, Cholecystitis, diverticulosis, ischemic bowel, pancreatitis, hepatitis, UTI, gastroenteritis, AAA, incarcerated hernia, bowel obstruction, constipation, inflammatory bowel, hepatitis, peptic ulcer disease, splenic infarction, perforated viscus, vulvitis, ovarian torsion, PID, kidney stone, placenta abruption, this is not meant to be an all-inclusive list ] EKG interpreted by me (3pts min.). @ -None X-rays interpreted by me (1pt min.). @ -[None done] CT interpreted by me (1pt min.). @ -CT U/S interpreted by me (1pt. min.). @ -[None done] What testing was considered but not performed or refused? (CT, X-rays, U/S, labs)? Why? @ -[None] What meds were considered but not given or refused? Why? @ -[None] Did you discuss the management of the patient with other professionals (professionals i.e. ROMELIA Duron, STREET SUPERVISOR, lab, RT, psych nurse, director social welfare, coin wrapping machine operator, teacher, flight deck officer, caseworker intake)? Give summary @ -[No] Was smoking cessation discussed for >3mins.? @ -[No] Was critical care preformed (if so, how long)? @ -[No] Were there social determinants of health that impacted care today? How? (Homelessness, low income, unemployed, alcoholism, drug addiction, transportation, low edu. Level, literacy, decrease access to med. care, custodial, rehab)? @ -[No] Was there de-escalation of care discussed even if they declined (Discuss DNR or withdrawal of care, Hospice)? DNR status @ -[No] What co-morbidities impacted this encounter? (DM, HTN, Smoking, COPD, CAD, Cancer, CVA, ARF, Chemo, Hep., AIDS, mental health diagnosis, sleep apnea, morbid obesity)? @ -[None] Was patient admitted / discharged? Hospital course, mention meds given and route, prescriptions, significant lab abnormalities, going to OR and other pertinent info. @ -Patient presented the emergency department for evaluation of abdominal pain. Laboratory studies performed revealing no significant leukocytosis, hemoglobin stable. CMP is nonactionable. UA shows no evidence of infectious process. CT of the abdomen pelvis is pending at time of signout to Nichole Davis PA-C Undiagnosed new problem with uncertain prognosis? @ -[No] Drug Therapy requiring intensive monitoring for toxicity (Heparin, Nitro, Insulin, Cardizem)? @ -[No] Were any procedures done? @ -[No] Diagnosis/symptom? @ -[default] Acute, or Chronic, or Acute on Chronic? @ -[default] Uncomplicated (without systemic symptoms) or Complicated (systemic symptoms)? @ -[default] Side effects of treatment? @ -[No] Exacerbation, Progression, or Severe Exacerbation? @ -[No] Poses a threat to life or bodily function? How? (Chest pain, USA, MA, pneumonia, PE, COPD, DKA, ARF, appy, cholecystitis, CVA, Diverticulitis, Homicidal, Suicidal, threat to staff... and all critical care pts) @ -[No] (Dorothy Narvaez) Was pt. sent in by a medical professional or institution (ROMELIA Duron, STREET SUPERVISOR, urgent care, hospital, or chcf...) When possible be specific @ -No Did you speak to anyone other than the patient for history (EMS, parent, family, police, friend...)? What history was obtained from this source @ -No Did you review nursing and triage notes (agree or disagree)? Why? @ -I reviewed and agree with nursing and triage notes Were old charts reviewed (outside hosp., previous admission, EMS record, old EKG, old radiological studies, urgent care reports/EKG's, chcf records)? Report findings @ -No old charts were reviewed Differential Diagnosis (chest pain, altered mental status, abdominal pain women, abdominal pain men, vaginal bleeding, weakness, fever, dyspnea, syncope, headache, dizziness, GI bleed, back pain, seizure, CVA, palpatations, mental health, musculoskeletal)? @ -[Differential Abdominal Pain Women: Appendicitis, Cholecystitis, diverticulosis, ischemic bowel, pancreatitis, hepatitis, UTI, gastroenteritis, AAA, incarcerated hernia, bowel obstruction, constipation, inflammatory bowel, hepatitis, peptic ulcer disease, splenic infarction, perforated viscus, vulvitis, ovarian torsion, PID, kidney stone, placenta abruption, this is not meant to be an all-inclusive list EKG interpreted by me (3pts min.). @ -None done X-rays interpreted by me (1pt min.). @ -[None done CT interpreted by me (1pt min.). @-CTA abdomen pelvis showing no evidence of gastrointestinal hemorrhage. There is dilation of CBD measuring 11 mm. Colonic diverticulosis. 2 gastric diverticula. 7 mm focus of arterial and venous phase liver enhancement. U/S interpreted by me (1pt. min.). @ -None done What testing was considered but not performed or refused? (CT, X-rays, U/S, labs)? Why? @ -None What meds were considered but not given or refused? Why? @ -None Did you discuss the management of the patient with other professionals (professionals i.e. , PA, STREET SUPERVISOR, lab, RT, psych nurse, director social welfare, coin wrapping machine operator, teacher, flight deck officer, caseworker intake)? Give summary @ -No Was smoking cessation discussed for >3mins.? @ -No Was critical care preformed (if so, how long)? @ -No Were there social determinants of health that impacted care today? How? (Homelessness, low income, unemployed, alcoholism, drug addiction, transportation, low edu. Level, literacy, decrease access to med. care, custodial, rehab)? @ -No Was there de-escalation of care discussed even if they declined (Discuss DNR or withdrawal of care, Hospice)? DNR status @ -No What co-morbidities impacted this encounter? (DM, HTN, Smoking, COPD, CAD, Cancer, CVA, ARF, Chemo, Hep., AIDS, mental health diagnosis, sleep apnea, morbid obesity)? @ -None Was patient admitted / discharged? Hospital course, mention meds given and route, prescriptions, significant lab abnormalities, going to OR and other pertinent info. @ -[Discharge. 63-year-old female presenting the ER for evaluation abdominal pain. Patient signed out to me by previous shift, Dorothy Narvaez PA-C pending CT results and disposition. CTA showing no acute evidence of gastrointestinal hemorrhage. Colonic diverticulosis without evidence of acute diverticulitis. Upon reevaluation, patient resting comfortably on stretcher no signs of acute distress. Patient reporting improvement of pain after analgesic medications. Patient did report bright red blood on toilet paper when wiping rectal exam performed by Brice reported to be significant for hemorrhoids which are likely source of blood. CT results including dilation of common bile duct and liver abnormality discussed with patient and advised close follow-up with PCP and GI for further evaluation. Patient is agreeable for discharge and will be discharged stable condition. Return parameters discussed. Patient verbally expressed understand agree with care plan. Case discussed with ED attending, Dr. Price. Undiagnosed new problem with uncertain prognosis? @ -No Drug Therapy requiring intensive monitoring for toxicity (Heparin, Nitro, Insulin, Cardizem)? @ -No Were any procedures done? @ -No Diagnosis/symptom? @ -Abdominal pain Acute, or Chronic, or Acute on Chronic? @ -Acute Uncomplicated (without systemic symptoms) or Complicated (systemic symptoms)? @ -Uncomplicated Side effects of treatment? @ -No Exacerbation, Progression, or Severe Exacerbation? @ -No Poses a threat to life or bodily function? How? (Chest pain, USA, MA, pneumonia, PE, COPD, DKA, ARF, appy, cholecystitis, CVA, Diverticulitis, Homicidal, Suicidal, threat to staff... and all critical care pts) @ -Unlikely (Nichole Davis) - Lab Data Lab Results 06/25/24 06/25/24 06/25/24 Range/Units 18:05 18:05 18:05 WBC 7.26 (4.50-10.00) 10*3/uL RBC 4.06 L (4.10-5.20) 10*6/uL Hgb 13.4 (12.0-15.0) g/dL Hct 39.0 (37.2-46.3) % MCV 96.1 (80.0-97.0) fL MCH 33.0 H (27.0-32.0) pg MCHC 34.4 (32.0-37.0) g/dL Plt Count 285 (140-440) 10*3/uL MPV 10.2 (9.5-12.2) fL Immature Gran % (Auto) 0.3 % Neutrophils % 52.9 % Lymphocytes % 39.7 % Monocytes % 6.2 % Eosinophils % 0.6 % Basophils % 0.3 % Immature Gran # 0.02 (0.00-0.04) 10*3/uL Neutrophils # 3.85 (1.80-7.70) 10*3/uL Lymphocytes # 2.88 (0.90-5.00) 10*3/uL Monocytes # 0.45 (0.20-1.00) 10*3/uL Eosinophils # 0.04 (0.04-0.35) 10*3/uL Basophils # 0.02 (0.00-0.10) 10*3/uL Sodium 140 (137-145) mmol/L Potassium 4.0 (3.5-5.1) mmol/L Chloride 110 H (98-107) mmol/L Carbon Dioxide 21 L (22-30) mmol/L Anion Gap 9 mmol/L BUN 12 (7-17) mg/dL Creatinine 0.63 (0.52-1.04) mg/dL Est GFR (CKD-EPI)AfAm >90 (>60 ml/min/1.73 sqM) Est GFR (CKD-EPI)NonAf >90 (>60 ml/min/1.73 sqM) Glucose 91 (74-99) mg/dL Calcium 9.9 (8.4-10.2) mg/dL Total Bilirubin 0.5 (0.2-1.3) mg/dL AST 25 (14-36) U/L ALT 24 (4-34) U/L Alkaline Phosphatase 92 (38-126) U/L Total Protein 6.9 (6.3-8.2) g/dL Albumin 4.4 (3.5-5.0) g/dL Amylase 62 (30-110) U/L Lipase 178 (23-300) U/L Urine Color Colorless Urine Appearance Cloudy H (Clear) Urine pH 6.5 (5.0-8.0) Ur Specific [place] 1.014 (1.001-1.035) Urine Protein Negative (Negative) Urine Glucose (UA) Negative (Negative) Urine Ketones Negative (Negative) Urine Blood Negative (Negative) Urine Nitrite Negative (Negative) Urine Bilirubin Negative (Negative) Urine Urobilinogen <2.0 (<2.0) mg/dL Ur Leukocyte Esterase Negative (Negative) Urine RBC <1 (0-5) /hpf Urine WBC 2 (0-5) /hpf Ur Squamous Epith Cells 2 (0-4) /hpf Urine Mucus Rare H (None) /hpf Disposition <Dorothy Narvaez - Last Filed: 06/25/24 19:47> Is patient prescribed a controlled substance at d/c from ED?: No Time of Disposition: 20:40 <Nichole Davis - Last Filed: 06/26/24 00:06> Clinical Impression: Abdominal pain Disposition: HOME SELF-CARE Condition: Stable Instructions (If sedation given, give patient instructions): Abdominal Pain (ED) Additional Instructions: Follow-up with PCP and GI. Follow-up closely for further evaluation of dilated common bile duct and liver lesion found on CT. Return to the ER for any new or worsening concerns. Referrals: Alexus Colbert MD [Primary Care Provider] - 1-2 days Bernice Wseley MD [STAFF PHYSICIAN] - 1-2 days
[2024-06-25] MEDS: KETOROLAC 15 MG/ML 1 ML VIAL IVP STA (18:13)
[2024-06-25] MEDS: LACTATED RINGERS 1,000 ML IV ONE (18:13)
[2024-06-25 18:14] LABS: Basophils # (A) 0.02 10*3/uL (0.00-0.10); Basophils % (A) 0.3 %; Eosinophils # (A) 0.04 10*3/uL (0.04-0.35); Eosinophils % (A) 0.6 %; HGB 13.4 g/dL (12.0-15.0); Lymphocytes # (A) 2.88 10*3/uL (0.90-5.00); Lymphocytes % (A) 39.7 %; MCHC 34.4 g/dL (32.0-37.0); MCV 96.1 fL (80.0-97.0); Mean Platelet Volume 10.2 fL (9.5-12.2); Monocytes # (A) 0.45 10*3/uL (0.20-1.00); Monocytes % (A) 6.2 %; Neutrophils # (A) 3.85 10*3/uL (1.80-7.70); Neutrophils % (A) 52.9 %; Platelet Count 285 10*3/uL (140-440); RBC 4.06 10*6/uL (4.10-5.20); RDW 13.2 % (11.5-14.5); WBC 7.26 10*3/uL (4.50-10.00)
[2024-06-25 18:18] LABS: Appearance,Urine Cloudy (Clear); Bilirubin,Urine Negative (Negative); Blood,Urine Negative (Negative); Color,Urine Colorless; Glucose,Urine (UA) Negative (Negative); Ketones,Urine Negative (Negative); Leukocyte Esterase,Urine Negative (Negative); Mucus,Urine Rare /hpf; Nitrite,Urine Negative (Negative); PH, Urine 6.5 (5.0-8.0); Protein,Urine Negative (Negative); RBC,Urine <1 /hpf (0-5); Specific Gravity,Urine 1.014 (1.001-1.035); Squamous Epithelial Cell,Urine 2 /hpf (0-4); Urobilinogen,Urine <2.0 mg/dL (<2.0); WBC,Urine 2 /hpf (0-5)
[2024-06-25 18:27] LABS: ALT 24 U/L (4-34); AST 25 U/L (14-36); African American GFR (CKD) >90 (>60 ml/min/1.73 sqM); Albumin 4.4 g/dL (3.5-5.0); Alkaline Phosphatase 92 U/L (38-126); Amylase 62 U/L (30-110); Anion Gap 9 mmol/L; Blood Urea Nitrogen 12 mg/dL (7-17); Calcium 9.9 mg/dL (8.4-10.2); Carbon Dioxide 21 mmol/L (22-30); Chloride 110 mmol/L (98-107); Glucose 91 mg/dL (74-99); Lipase 178 U/L (23-300); Non-African American GFR(CKD) >90 (>60 ml/min/1.73 sqM); Sodium 140 mmol/L (137-145); Total Bilirubin 0.5 mg/dL (0.2-1.3); Total Protein 6.9 g/dL (6.3-8.2)
--- NOTE | 2024-06-25 20:21 | CT ---
EXAMINATION TYPE: CT angio abdomen pelvis DATE OF EXAM: 06/25/2024 7:22 PM COMPARISON: None. CLINICAL INDICATION: Female, 63 years old with history of abd pain, GI bleed; PHH, lower abd pain x 2 days, reports burning with urination, hard BMs TECHNIQUE: CT angiogram abdomen and pelvis. Multiple thin slice sub-millimeter images were obtained before and after administration of contrast. 3-D reconstructed images and maximum intensity projection images were obtained on a separate works tation. CT angio abdomen pelvis CT Contrast: Contrast used:100ml mL of Isovue 370 without and with IV Contrast, Oral contrast used: without Oral Contrast None CT DLP: 1988.4 mGycm, Automated exposure control for dose reduction was used. FINDINGS: CTA Abdomen and pelvis: The abdominal aorta does not demonstrate aneurysmal dilatation. The origins of the superior mesenteric artery, renal arteries, inferior mesenteric artery, and celiac axis are pa tent. The iliac vessels are normal in morphology no evidence for extravasation pooling and delayed i maging. LOWER CHEST: No evidence of focal consolidation, pneumothorax or pleural effusion. LIVER: Indeterminate arterial enhancing focus at series 411 image 37. Measuring 7 mm. GALLBLADDER AND BILE DUCTS: Dilated common duct up to 11 mm which is more than expected for patient a ge. PANCREAS: Unremarkable. SPLEEN: Unremarkable. ADRENAL GLANDS: Unremarkable. KIDNEYS AND URETERS: No evidence of hydronephrosis or obstructing renal calculus. The ureters are unr emarkable. PELVIS BLADDER: Unremarkable REPRODUCTIVE: The uterus is surgically absent. ABDOMEN & PELVIS STOMACH AND BOWEL: Evaluation of the gastrointestinal tract demonstrates no evidence of high density hemorrhage on arterial phase or pooling of blood on delayed phases. No evidence of bowel obstruction. Scattered colonic diverticula. The appendix is normal. Posterior gastric diverticulum is suspected m easuring 15 mm series 411 image 37 as well as another more anteriorly image 45 measuring 11 mm. PERITONEUM: No evidence of pneumoperitoneum or free fluid. VASCULATURE: No evidence of aortic aneurysm. MUSCULOSKELETAL: Moderate disc degeneration changes are present throughout the thoracolumbar spine. G rade 1 anterolisthesis of L4 and L5 with severe facet joint arthropathy. No spondylolysis. LYMPH NODES: No gross evidence for lymphadenopathy. SOFT TISSUE/ABDOMINAL WALL: Unremarkable IMPRESSION: 1. No evidence for gastrointestinal hemorrhage. 2. Dilation of the common bilaterally which is more than expected for patient's age. Consider MRCP f or further evaluation. 3. Colonic diverticulosis. 4. Two Gastric diverticula suggested. 5. Grade 1 anterolisthesis of L4 and L5 with severe facet joint arthropathy. No spondylolysis 6. 7 mm focus of arterial and venous phase enhancement of the liver. Further evaluation with liver M RI with IV contrast recommended for complete evaluation. [facility], , 06/25/2024 8:19 PM
[2024-06-25 20:53] VITALS: BP 116/73; PULSE 62; RESP 18; TEMP 98.4
== END 2024-06-25 20:53 | disposition home or self-care (01) ==
LOC: EC 16:37
DX: R10.30 Lower abdominal pain, unspecified (principal); F17.200 Nicotine dependence, unspecified, uncomplicated
CPT/HCPCS: 36415; 80053; 82150; 83690; 85025; 81001; 74174; 99284; 96374; 96361; J1885; Q9967

== ENCOUNTER → 2024-08-07 | Outpatient (CLI) | payer BC ==
--- NOTE | 2024-08-07 15:19 | CTL ---
EXAMINATION TYPE: CT Low Dose Lung DATE OF EXAM: 08/07/2024 7:18 AM COMPARISON: 08/29/2019 CLINICAL INDICATION: Female, 64 years old with history of Z12.2, F17.210 NICOTINE DEPENDENCE, CIGARET VANE, lung CA screening, History of tobacco use. Current smoker with 47 pack-year history TECHNIQUE: Low dose computed tomography scan was performed through the chest at 1 mm thick sections a nd reconstructed images in multiple planes at 1 mm and [address] DLP: 139.3 mGycm, CT CTDI: 3.8 mGy, Automated exposure control for dose reduction was used. CT DIAGNOSTIC QUALITY: Satisfactory FINDINGS: Heart is normal size without pericardial effusion. No significant coronary artery calcifications. Aorta normal caliber with minimal atherosclerotic arch calcifications and conventional arch vessel br anching anatomy. Borderline caliber main right and left pulmonary arteries up to 2.5 cm may reflect underlying pulmona ry arterial hypertension. No thoracic lymphadenopathy by CT size criteria. Strandy scarring at the lung bases. Mild emphysematous change. No consolidation or pleural effusion. 4 mm subpleural pulmonary nodule posterior right upper lung, axial image 93. 4 mm posterior left upper lung nodularity, axial image 106 Visualized upper abdomen shows no gross abnormality. Bones: Moderate degenerative disc disease T6-T7. Normal variant sternal foramen. IMPRESSION: 1. LungRADS 2, benign. A couple 4 mm pulmonary nodules on baseline screening. 2. COPD with mild emphysema and possible underlying pulmonary arterial hypertension. Advise smoking c essation. CT LUNG RAD AND CT CHEST RECOMMENDATION: Lung-Rad 2 Benign Appearance or Behavior: Continue annual sc reening with LDCT in 12 months. S Modifier (other clinically significant findings): None [facility], , 08/07/2024 3:17 PM
== END | disposition home or self-care (01) ==
LOC: RADCTMAIN 06:57
PROVIDERS: ATTEND Family Medicine
DX: Z12.2 Encounter for screening for malignant neoplasm of respiratory organs (principal); F17.210 Nicotine dependence, cigarettes, uncomplicated; J44.9 Chronic obstructive pulmonary disease, unspecified; R91.8 Other nonspecific abnormal finding of lung field; J43.9 Emphysema, unspecified
CPT/HCPCS: 71271